=== PATIENT | female | born 1990 | race Two or more races ===

== ENCOUNTER 2024-06-30 22:44 | Inpatient (IN) | payer OTHER ==
[~2024-06-30] VITALS: Ht 152.4 cm; Wt 58.1 kg
[2024-06-30 22:23] VITALS: BP 100/65
[2024-06-30] MEDS ORDERED: MAGNESIUM SULFATE IN WATER 4 GM/100 ML PIGGYBACK IV ONE ×2 (22:48→23:15)
[2024-06-30] MEDS ORDERED: MAGNESIUM SULFATE IN WATER 0.04 GM/ML IV.SOLN IV ONE (22:49)
[2024-06-30] MEDS ORDERED: BETAMETHASONE ACETATE,SOD PHOS 30 MG/5 ML ML ONE (23:04)
[2024-06-30] MEDS ORDERED: RINGERS SOLUTION,LACTATED 1,000 ML IV SCH (23:15)
[2024-06-30] MEDS ORDERED: MAGNESIUM SULFATE IN WATER 500 ML IV SCH (23:15)
[2024-06-30 23:19] VITALS: BP 100/66
[2024-06-30 23:41] LABS: PH,URINE 6.5 (5.0-8.0); URINE APPEARANCE Clear; URINE BILIRRUBIN Negative (NEGATIVE); URINE BLOOD Negative; URINE COLOR Yellow; URINE GLUCOSE Negative (NEGATIVE); URINE KETONE Negative (NEGATIVE); URINE LEUKOCYTE Negative; URINE NITRATE Negative; URINE PROTEIN Negative (NEGATIVE); URINE UROBILINOGEN 0.2 E.U./dl
[2024-06-30 23:43] LABS: URINE BACTERIA 1232.5 uL (0.0-1933); URINE CAST 0.29 uL (0.0-1.40); URINE EPITHELIAL CELLS 13.1 uL (0.0-38.8); URINE WBC 25.9 uL (0.0-23.2)
[2024-06-30 23:44] LABS: HEMATOCRIT 35.2 % (36.0-45.00); HEMOGLOBIN 12.7 g/dL (12.0-15.00); MEAN CELL VOLUME 93.5 fL (80.00-100.00); MEAN CORPUSCULAR HEMOGLOBIN 33.6 pg (27.00-32.0); PLATELET COUNT 196 K/uL (150-450); RED BLOOD COUNT 3.77 M/uL (4.00-6.00)
[2024-06-30] MEDS ORDERED: BETAMETHASONE ACETATE,SOD PHOS 30 MG/5 ML ML IM ONE (23:45)
[2024-07-01 00:02] LABS: ALBUMIN 2.8 gm/dL (3.4-5.0); BILIRUBIN TOTAL 0.33 mg/dL (0.3-1.2); CALCIUM 9.1 mg/dL (8.5-10.1); CREATININE SERUM 0.48 mg/dL (0.55-1.02); GFR 147.18; POTASSIUM 3.84 mEq/L (3.5-5.1); TOTAL PROTEIN 5.8 gm/dL (6.4-8.2)
[2024-07-01 00:18] LABS: INR < 0.93; PARTIAL THROMBOPLASTIN TIME 22.6 SECONDS (22.0-34.0)
[2024-07-01 03:44] VITALS: BP 103/60
[2024-07-01 06:02] VITALS: BP 114/78; O2SAT 99
[2024-07-01 10:58] VITALS: BP 102/66
[2024-07-01] MEDS ORDERED: FAMOtidine 20 MG TABLET PO SCH (11:01)
[2024-07-01] MEDS ORDERED: PRENATABS RX T1 EACH PO (11:33)
[2024-07-01] MEDS ORDERED: ACETAMINOPHEN 500 MG GEL..CAP PO PRN ×2 (12:48)
[2024-07-01 15:38] VITALS: BP 100/70
[2024-07-01 20:33] VITALS: BP 96/64
[2024-07-01] MEDS ORDERED: BETAMETHASONE ACETATE,SOD PHOS 30 MG/5 ML ML IM NR (23:00)
[2024-07-01 23:22] VITALS: BP 116/70
[2024-07-02 03:48] VITALS: BP 102/63
[2024-07-02 07:20] VITALS: BP 106/68
[2024-07-02 10:59] VITALS: BP 112/68
[2024-07-02 14:04] VITALS: BP 110/68
[2024-07-02 16:30] VITALS: BP 112/69
[2024-07-02] MEDS ORDERED: NIFEDIPINE 30 MG TAB.SA.OSM PO SCH (17:00)
[2024-07-02] MEDS ORDERED: hydrOXYzine PAMOATE 25 MG CAPSULE PO STA (22:48)
[2024-07-03 02:08] VITALS: BP 85/56
[2024-07-03 09:00] VITALS: BP 94/60
== END 2024-07-03 11:42 | disposition home or self-care (01) | DRG 833 ==
LOC: LDR 22:44 → OB/GYN 07-02 12:57
PROVIDERS: ADMIT Obstetrics & Gynecology; ATTEND Obstetrics & Gynecology
PROC: 4A1HXCZ Monitoring of Products of Conception, Cardiac Rate, External Approach (ICD-10-PCS; principal; 2024-06-30)
PROC: BY4FZZZ Ultrasonography of Third Trimester, Single Fetus (ICD-10-PCS; 2024-07-01)
PROC: BU4CZZZ Ultrasonography of Uterus and Ovaries (ICD-10-PCS; 2024-07-01)
DX: O47.03 False labor before 37 completed weeks of gestation, third trimester (principal); Z3A.33 33 weeks gestation of pregnancy; O26.843 Uterine size-date discrepancy, third trimester; O36.8130 Decreased fetal movements, third trimester, not applicable or unspecified

== ENCOUNTER 2024-07-07 00:22 | Inpatient (IN) | payer OTHER ==
[~2024-07-07] VITALS: Ht 152.4 cm; Wt 58.1 kg
[2024-07-07] VITALS (8 sets, daily range): BP systolic 100–116; BP diastolic 63–84; O2SAT 94–97
[~2024-07-07 00:22] MED LIST: PRENATABS RX T1 EACH PO
[2024-07-07] MEDS ORDERED: RINGERS SOLUTION,LACTATED 1,000 ML IV SCH (06:15)
[2024-07-07] MEDS ORDERED: MORPHINE SULFATE 4 MG/ML VIAL IV ONE (06:15)
[2024-07-07 06:19] LABS: CREATININE SERUM 0.48 mg/dL (0.55-1.02); GFR 147.18; POTASSIUM 3.99 mEq/L (3.5-5.1)
[2024-07-07 06:20] LABS: ALBUMIN 2.8 gm/dL (3.4-5.0); BILIRUBIN TOTAL 0.3 mg/dL (0.3-1.2); CALCIUM 8.9 mg/dL (8.5-10.1); GLOBULINA 3.3 G/DL (2.4-3.5); TOTAL PROTEIN 6.1 gm/dL (6.4-8.2)
[2024-07-07 06:27] LABS: MEAN CORPUSCULAR HGB CONC 35.3 g/dl (32.0-36.0)
[2024-07-07 06:29] LABS: RED CELL DISTRIBUTION WIDTH 13.5 % (11.5-14.5)
[2024-07-07] MEDS ORDERED: MAGNESIUM SULFATE IN WATER 0.04 GM/ML IV.SOLN IV ONE (08:23)
[2024-07-07] MEDS ORDERED: MAGNESIUM SULFATE IN WATER 500 ML IV SCH (08:30)
[2024-07-07 11:13] LABS: RED BLOOD COUNT 3.79 M/uL (4.00-6.00)
[2024-07-07 11:14] LABS: HEMATOCRIT 35.8 % (36.0-45.00); HEMOGLOBIN 12.7 g/dL (12.0-15.00); MEAN CELL VOLUME 94.5 fL (80.00-100.00); MEAN CORPUSCULAR HEMOGLOBIN 33.4 pg (27.00-32.0)
[2024-07-07 11:15] LABS: PLATELET COUNT 181 K/uL (150-450)
[2024-07-07] MEDS ORDERED: FAMOTIDINE/PF 20 MG/2 ML VIAL ONE (16:59)
[2024-07-07] MEDS ORDERED: FAMOTIDINE/PF 20 MG/2 ML VIAL IV PUSH SCH (17:15)
[2024-07-08 04:12] VITALS: BP 107/73
[2024-07-08 06:11] VITALS: BP 111/77; O2SAT 97
[2024-07-08] MEDS ORDERED: NIFEDIPINE 30 MG TAB.SA.OSM PO SCH (09:00)
[2024-07-08] MEDS ORDERED: ACETAMINOPHEN 500 MG GEL..CAP PO PRN ×2 (09:00→14:21)
[2024-07-08 11:18] VITALS: BP 110/76; O2SAT 97
[2024-07-08 15:13] VITALS: BP 107/71
[2024-07-08 18:53] VITALS: BP 120/78
[2024-07-08 23:20] VITALS: BP 120/74
[2024-07-09] MEDS ORDERED: MAGNESIUM SULFATE IN WATER 4 GM/100 ML PIGGYBACK IV SCH (00:30)
[2024-07-09] MEDS ORDERED: MAGNESIUM SULFATE IN WATER 500 ML IV SCH (00:30)
[2024-07-09 03:19] VITALS: BP 108/76
[2024-07-09] MEDS ORDERED: FAMOTIDINE/PF 20 MG/2 ML VIAL ONE (03:53)
[2024-07-09] MEDS ORDERED: CITRIC ACID/SODIUM CITRATE 30 ML BLIST.PACK PO SCH (05:00)
[2024-07-09 07:25] VITALS: BP 116/79
[2024-07-09 11:23] VITALS: BP 104/75
[2024-07-09] MEDS ORDERED: DOCUSATE SODIUM 100MG CAP PO NR (12:30)
[2024-07-09 15:15] VITALS: BP 95/64
[2024-07-09 20:05] VITALS: BP 95/65
[2024-07-09 23:15] VITALS: BP 114/75
[2024-07-10 03:03] VITALS: BP 119/79
[2024-07-10 07:23] VITALS: BP 120/84
[2024-07-10] MEDS ORDERED: DOCUSATE SODIUM 100MG CAP PO SCH (09:00)
[2024-07-10 13:02] VITALS: BP 103/68; O2SAT 98
[2024-07-10 15:10] VITALS: BP 108/70
[2024-07-10] MEDS ORDERED: NIFEDIPINE 30 MG TAB.SA.OSM PO SCH (17:00)
[2024-07-10 19:52] VITALS: BP 109/76
[2024-07-10 23:25] VITALS: BP 118/77
[2024-07-11 03:31] VITALS: BP 127/78
[2024-07-11 06:05] VITALS: BP 115/77; O2SAT 97
== END 2024-07-11 09:22 | disposition home or self-care (01) | DRG 832 ==
LOC: OBS/DEL 00:22 → LDR 08:27
PROVIDERS: ADMIT Obstetrics & Gynecology; ATTEND Obstetrics & Gynecology
PROC: 4A1HXCZ Monitoring of Products of Conception, Cardiac Rate, External Approach (ICD-10-PCS; principal; 2024-07-07)
PROC: BY4FZZZ Ultrasonography of Third Trimester, Single Fetus (ICD-10-PCS; 2024-07-08)
PROC: BU4CZZZ Ultrasonography of Uterus and Ovaries (ICD-10-PCS; 2024-07-08)
DX: O47.03 False labor before 37 completed weeks of gestation, third trimester (principal); O41.03X0 Oligohydramnios, third trimester, not applicable or unspecified; O36.8130 Decreased fetal movements, third trimester, not applicable or unspecified; Z3A.34 34 weeks gestation of pregnancy

== ENCOUNTER 2024-07-21 04:50 | Inpatient (IN) | payer OTHER ==
[2024-07-21] VITALS (8 sets, daily range): BP systolic 66–130; BP diastolic 43–83
[~2024-07-21] VITALS: Ht 152.4 cm; Wt 58.1 kg
[~2024-07-21 04:50] MED LIST changes: +AMPICILLIN SODIUM 2,000 MG VIAL ONE
[2024-07-21] MEDS ORDERED: NIFEDIPINE ER30 M1 PO (04:53)
[2024-07-21] MEDS ORDERED: PEPCID AC20 MG (04:54)
[2024-07-21] MEDS ORDERED: MORPHINE SULFATE 4 MG/ML CARTRIDGE IV ONE (05:00)
[2024-07-21] MEDS ORDERED: AMPICILLIN SODIUM 2,000 MG VIAL IV ONE (05:00)
[2024-07-21] MEDS ORDERED: RINGERS SOLUTION,LACTATED 1,000 ML IV SCH (05:00)
[2024-07-21 05:46] LABS: HEMATOCRIT 38.3 % (36.0-45.00); HEMOGLOBIN 13.7 g/dL (12.0-15.00); MEAN CELL VOLUME 93.1 fL (80.00-100.00); MEAN CORPUSCULAR HEMOGLOBIN 33.3 pg (27.00-32.0); MEAN CORPUSCULAR HGB CONC 35.8 g/dl (32.0-36.0); PLATELET COUNT 201 K/uL (150-450); RED BLOOD COUNT 4.12 M/uL (4.00-6.00); RED CELL DISTRIBUTION WIDTH 13.6 % (11.5-14.5)
[2024-07-21 05:55] LABS: INR < 0.93; PARTIAL THROMBOPLASTIN TIME 24.2 SECONDS (22.0-34.0); PROTHROMBIN TIME 9.7 SECONDS (9.0-11.5)
[2024-07-21 05:58] LABS: ALBUMIN 2.9 gm/dL (3.4-5.0); BILIRUBIN TOTAL 0.3 mg/dL (0.3-1.2); CALCIUM 9.1 mg/dL (8.5-10.1); CREATININE SERUM 0.63 mg/dL (0.55-1.02); GFR 107.54; GLOBULINA 3.4 G/DL (2.4-3.5); POTASSIUM 3.92 mEq/L (3.5-5.1); TOTAL PROTEIN 6.3 gm/dL (6.4-8.2)
[2024-07-21] MEDS ORDERED: BETAMETHASONE ACETATE,SOD PHOS 30 MG/5 ML ML IM STA (08:54)
[2024-07-21] MEDS ORDERED: AMPICILLIN SODIUM 1,000 MG VIAL IV SCH (09:00)
[2024-07-21] MEDS ORDERED: CITRIC ACID/SODIUM CITRATE 30 ML BLIST.PACK PO ONE (12:15)
[2024-07-21] MEDS ORDERED: FAMOTIDINE/PF 20 MG/2 ML VIAL ONE (13:44)
[2024-07-21] MEDS ORDERED: FAMOTIDINE/PF 20 MG/2 ML VIAL IV PUSH ONE (14:15)
[2024-07-21] MEDS ORDERED: LIDOCAINE HCL 1% 10ML VIAL ONE (14:59)
[2024-07-21] MEDS ORDERED: OXYTOCIN 20 UNITS/1000ML RL PIGGYBAG IV ONE (14:59)
[2024-07-21] MEDS ORDERED: CHLORHEXIDINE GLUCONATE 120 ML BOTTLE TOP ONE (14:59)
[2024-07-21] MEDS ORDERED: ERYTHROMYCIN BASE OPHT 1GM EACH TUBE OP ONE (14:59)
[2024-07-21] MEDS ORDERED: OXYTOCIN 1,000 ML IV SCH (16:00)
[2024-07-21] MEDS ORDERED: OxyCODONE HCL/APAP UD (PERCOCET) PO PRN (16:00)
[2024-07-21] MEDS ORDERED: FAMOtidine 20 MG TABLET PO SCH (17:00)
[2024-07-22 00:12] VITALS: BP 140/80
[2024-07-22 09:12] VITALS: BP 133/83
[2024-07-22 10:47] LABS: HEMATOCRIT 36.8 % (36.0-45.00); HEMOGLOBIN 12.8 g/dL (12.0-15.00); MEAN CELL VOLUME 93.6 fL (80.00-100.00); MEAN CORPUSCULAR HEMOGLOBIN 32.5 pg (27.00-32.0); MEAN CORPUSCULAR HGB CONC 34.8 g/dl (32.0-36.0); PLATELET COUNT 199 K/uL (150-450); RED BLOOD COUNT 3.93 M/uL (4.00-6.00); RED CELL DISTRIBUTION WIDTH 13.7 % (11.5-14.5)
[2024-07-22 18:30] VITALS: BP 11/77
[2024-07-23] VITALS: BP 108/71
[2024-07-23 08:58] VITALS: BP 104/75
== END 2024-07-23 13:50 | disposition home or self-care (01) | DRG 805 ==
LOC: LDR 04:50 → OB/GYN 16:41
PROVIDERS: Obstetrics & Gynecology Maternal & Fetal Medicine; ADMIT Obstetrics & Gynecology; ATTEND Obstetrics & Gynecology
PROC: 10E0XZZ Delivery of Products of Conception, External Approach (ICD-10-PCS; principal; 2024-07-21)
PROC: 0HQ9XZZ Repair Perineum Skin, External Approach (ICD-10-PCS; 2024-07-21)
PROC: 0UQG7ZZ Repair Vagina, Via Natural or Artificial Opening (ICD-10-PCS; 2024-07-21)
PROC: 4A1HXCZ Monitoring of Products of Conception, Cardiac Rate, External Approach (ICD-10-PCS; 2024-07-21)
DX: O70.0 First degree perineal laceration during delivery (principal); O60.14X0 Preterm labor third trimester with preterm delivery third trimester, not applicable or unspecified; Z37.0 Single live birth; Z3A.36 36 weeks gestation of pregnancy